=== PATIENT | female | born 1975 | race Caucasian/White ===

== ENCOUNTER 2024-01-19 20:50 | Emergency (ER) | payer OTHER ==
[~2024-01-19] VITALS: Ht 162.6 cm; Wt 77.1 kg
[2024-01-19 20:51] VITALS: BP 157/96; PULSE 120; RESP 20; TEMP 99.1; O2SAT 99
[2024-01-19 21:17] VITALS: PULSE 105; RESP 18; O2SAT 96
== END 2024-01-19 21:29 | disposition home or self-care (01) ==
LOC: MED 20:50
DX: Z02.89 Encounter for other administrative examinations (principal); I10 Essential (primary) hypertension; V48.5XXA Car driver injured in noncollision transport accident in traffic accident, initial encounter; Y93.89 Activity, other specified; Y92.410 Unspecified street and highway as the place of occurrence of the external cause; Y99.8 Other external cause status
CPT/HCPCS: 99283